=== PATIENT | male | born 1960 | race Caucasian/White ===

== ENCOUNTER 2022-09-10 12:12 | Outpatient (REF) | payer MEDICAID, SELFPAY ==
[2022-09-10 12:56] LABS: MANUAL DIFF FLAG NO
[2022-09-10 13:10] LABS: Basophils Percent Auto 0.3 % (0-2); Eosinophils Absolute Auto 0.1 X10*3/uL (0.0-0.4); Eosinophils Percent Auto 1.3 % (0-4); Hematocrit 42.5 % (42.0-52.0); Hemoglobin 14.5 g/dl (14.0-18.0); Imm Gran Abs Auto 0.02 X10*3/uL (0.00-0.03); Imm Gran Pct Auto 0.2 % (0.0-0.4); Lymphocytes Absolute Auto 2.8 X10*3/uL (1.2-4.9); Lymphocytes Percent Auto 31.3 % (20-40); Mean Corpuscular HGB Conc 34.1 g/dl (31.0-36.0); Mean Corpuscular Hemoglobin 29.7 pg (27.0-33.0); Mean Corpuscular Volume 86.9 fL (80.0-98.0); Monocytes Absolute Auto 0.9 X10*3/uL (0.1-1.2); Monocytes Percent Auto 9.9 % (2-11); Neutrophils Absolute Auto 5.1 x10*3/uL (2.0-8.3); Platelet Count 252 X10*3/uL (160-400); Red Blood Count 4.89 X10*6/uL (4.60-5.80); Red Cell Distribution Width 13.2 % (11.0-16.0)
[2022-09-10 13:53] LABS: Alanine Aminotransferase 34 U/L (0-40); Albumin Level 4.4 g/dL (3.5-5.0); Alkaline Phosphatase 102 U/L (39-117); Anion Gap 10 (12-20); Aspartate Amino Transferase 22 U/L (5-37); Bilirubin Total 0.5 mg/dL (0.0-1.0); Blood Urea Nitrogen 13 mg/dL (9-16); Calcium 9.8 mg/dL (8.4-10.2); Carbon Dioxide 29 mmol/L (22-29); Chloride 103 mmol/L (96-108); Estimated Glomerular Filt Rate 57; Glucose Random 102 mg/dL (60-115); Potassium 4.4 mmol/L (3.3-5.1); Sodium 138 mmol/L (135-145); Total Protein 7.1 g/dL (6.5-8.0)
[2022-09-12 10:37] LABS: TS Negative Control Passed; TS Panel A 4; TS Panel B 12; TS Positive Control Passed; TSpotTB Positive (Negative)
== END 2022-09-10 12:13 | disposition home or self-care (01) ==
LOC: HO.LAB 12:12
PROVIDERS: PCP Hospitalist; Referring Provider Hospitalist; Visit Provider Nurse Practitioner
DX: Z01.818 Encounter for other preprocedural examination (principal); Z11.1 Encounter for screening for respiratory tuberculosis; K74.60 Unspecified cirrhosis of liver; F20.0 Paranoid schizophrenia; R76.11 Nonspecific reaction to tuberculin skin test without active tuberculosis
CPT/HCPCS: 36415; 80053; 85025; 86481; 99202

== ENCOUNTER 2023-02-13 09:59 | Day surgery (SDC) | payer MEDICAID, SELFPAY ==
--- NOTE | 2023-02-12 13:39 | PC.NURSE ---
Guardian Laurel Higginbotham reached by phone at [phone] by this RN and informed will need to have phone available tomorrow for patients telephone consent. Guardian understood instructions & agreed to give consent by phone tomorrow.
--- NOTE | 2023-02-13 11:04 | MHC.SHP ---
Pre-Procedural Eval Section A Date of Service: 02/13/23 Section B Chief Complaint: screening Relevant Family History (Specify if Yes): No Relevant Social History: None Present Medications: see Short Stay Collaborative assessment Medical History: Significant History (High cholesterol Cirrhosis Paranoid schizophrenia) History of Previous Operations: No relevant previous surgery Allergies: Allergies Allergy/AdvReac Type Severity Reaction Status Date / Time Butyrophenones Allergy Unknown Unknown Verified 09/10/22 12:20 haloperidol [From Haldol] Allergy Unknown Unknown Verified 09/10/22 12:20 Review of Systems Sugical H&P ROS: Negative: Constitution, Cardiovascular, Respiratory, Neurological, Psychiatric, Hem-Onc, Allergic/Immunologic, Gastrointestinal, Genitourinary, Musculoskeletal, Integumentary, Endocrine and Eyes/Ears/Nose/Throat Exam Surgical H&P Exam: Normal: HEENT, Normal: Heart, Normal: Lungs, Normal: Extremities, Normal: Abdomen, Normal: Skin and Normal: Neurological Plan Diagnosis/Plan: Unchanged I have reviewed the history and physical and performed a pertinent physical examination on my patient. No changes have occurred unless specified. Time Spent With Patient Time: Total time managing care of this patient today ____ minutes.
[2023-02-13 11:14] VITALS: BMI 33.8
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
--- NOTE | 2023-02-13 11:46 | W.PM.OPN ---
Operative Note Operative Note Date of Service: 02/13/23 Narrative: Operative Information Procedure Description: Colonoscopy Indication: screening Anesthesia: MAC COLONOSCOPY Instrument: Olympus variable stiffness pediatric scope 190L Colonoscopy Monitoring: Vital signs and clinical assessment, continuous EKG monitoring, Pulse oximetry, Carbon Dioxide monitoring and blood pressure monitoring were done throughout the procedure. Colon withdrawal time was 30 minutes. Procedure: The patient was placed in the left lateral decubitis position and pre-procedure medications were administered. After a digital rectal examination of the ano-rectum, the video colonoscope was inserted into the rectum and advanced through the colon to the cecum/TI. The colonoscope was slowly withdrawn in a retrograde panoramic fashion and the colon mucosa was carefully examined including a retroflexed view of the rectum. Findings and interventions are described below. Procedure Difficulty: moderate, pressure applied to reach cecum Findings: Terminal Ileum-normal Cecum:normal Ascending Colon: x 3 sessile polyps 8-10 mm removed with cold snare Transverse Colon -normal Descending Colon: x 3 sessile polyps 7-9 mm removed with cold snare, x 1 sessile polyp 5-7 mm removed with cold forceps Sigmoid Colon: mild diverticulosis noted Rectum: Retroflexion with small internal hemorrhoids, grade I, at 18 cm from anal verge a 14-18 mm semi pedunculated polyp was noted. Injected with 1 cc of epinephrine then removed en bloc with hot snare with x 2 clips applied for hemostasis. Also marked with angi ink. Another sessile polyp 6-9 mm removed with cold snare Anorectum - normal Colon preparation: [place] Bowel Preparation Scale Right colon; 3 Transverse colon: 3 Left colon; 3 (0 = Unprepared colon segment with mucosa not seen due to solid stool that cannot be cleared. 1 = Portion of mucosa of the colon segment seen, but other areas of the colon segment not well seen due to staining, residual stool and/or opaque liquid. 2 = Minor amount of residual staining, small fragments of stool and/or opaque liquid, but mucosa of colon segment seen well. 3 = Entire mucosa of colon segment seen well with no residual staining, small fragments of stool or opaque liquid) Impression and Post Procedure Diagnosis: polyps internal hemorrhoids diverticular disease Plan: High fiber diet leaflet Avoid straining at stool, epsom salts and sitz bath, anusol supps or cream Repeat Colonoscopy in 1-2 years or earlier if clinically indicated Above findings were reviewed with the patient and relevant handouts were provided if indicated.
[2023-02-13 12:47] VITALS: BP 104/47; PULSE 89; RESP 16; TEMP 36.3; O2SAT 96
[2023-02-13 13:02] VITALS: BP 129/69; PULSE 74; RESP 16; TEMP 36.3; O2SAT 96
[2023-02-13 13:24] VITALS: BP 126/72; PULSE 71; RESP 16; TEMP 36.3; O2SAT 97
== END 2023-02-13 13:28 | disposition home or self-care (01) ==
PROVIDERS: PCP Hospitalist; Visit Provider Internal Medicine Gastroenterology
PROC: 0DJD8ZZ Inspection of Lower Intestinal Tract, Via Natural or Artificial Opening Endoscopic (ICD-10-PCS; CPT 45378; principal; 2023-02-13 11:50)
DX: Z12.11 Encounter for screening for malignant neoplasm of colon (principal); D12.0 Benign neoplasm of cecum; D12.2 Benign neoplasm of ascending colon; D12.8 Benign neoplasm of rectum; K63.5 Polyp of colon; K62.1 Rectal polyp; K57.30 Diverticulosis of large intestine without perforation or abscess without bleeding; K64.0 First degree hemorrhoids
CPT/HCPCS: 45385; 45380; 45381; 88305

== ENCOUNTER 2023-03-14 08:46 | Outpatient (AMB) | payer MEDICAID, SELFPAY ==
[2023-03-14 08:51] VITALS: BP 161/86; PULSE 93; BMI 34.8
--- NOTE | 2023-03-14 08:51 | A.OFFVIS_ITS ---
Intake Vital Signs 03/14/23 08:51 Height 5 ft 9 in Weight 235 lb 14.314 oz BMI 34.8 BP 161/86 H Blood Pressure Location Lt brachial Position Sitting Pulse 93 Intake Visit Reasons: s/p colonoscopy Intake Note: Keith presents to in office visit today in colonoscopy follow up. CC: Pt denies other GI symptoms Strip Winder Required: No Accompanied by: [facility] [employer] ENGINE[employer] Allergies Butyrophenones Allergy (Unknown, Verified 09/10/22 12:20) Unknown haloperidol [From Haldol] Allergy (Unknown, Verified 09/10/22 12:20) Unknown HPI s/p colonoscopy HPI Details 6Assessment & Plan (1) Pre-op examination: ?Code(s): Z01.818 - Encounter for other preprocedural examination ?Plan: This will be his first colonoscopy. He has intermittent constipation, no other GI problems. He is naive to anesthesia and sedation. He is a smoker, but he denies any asthma a cardiac problems. He has vitale hx of + TB skin test, will add a T spot. There is no know FHX of CRC or polyps. His father had PUD. (2) Cirrhosis: ?Code(s): K74.60 - Unspecified cirrhosis of liver (3) Paranoid schizophrenia: ?Code(s): F20.0 - Paranoid schizophrenia (4) Positive TB test: ?Code(s): R76.11 - Nonspecific reaction to tuberculin skin test without active tuberculosis ? ? ? Orders: Orders Comprehensive Met. Panel Today F20.0 - Paranoid s chizophrenia, K74. 60 - Unspecified c irrhosis of liver, Z01.818 - Encount er for other prepr ocedural examinati on ? Complete Blood Cou nt Auto Diff Today F20.0 - Paranoid s chizophrenia, K74. 60 - Unspecified c irrhosis of liver, Z01.818 - Encount er for other prepr ocedural examinati on ? T Spot TB Today F20.0 - Paranoid s chizophrenia, K74. 60 - Unspecified c irrhosis of liver, R76.11 - Nonspeci fic reaction to tu berculin skin test without active tu berculosis, Z01.81 8 - Encounter for other preprocedura l examination ? Medications: New peg 3350-electroly brooke 236-22.74-6.74 -5.86 gram (Golyt pilar) ?? until feca l effluent is yvonne r; do not exceed a total volume of 2 ,000 mL 240 mL? PO Q10M 1 day 4,000 mL 0RF Z12.11 - Encounter for screening for malignant neoplas m of colon LABS: Laboratory Tests 09/10/22 09/10/22 09/10/22 12:55 12:55 12:55 WBC 9.0 Hgb 14.5 Hct 42.5 Plt Count 252 Estimated GFR 57 Total Bilirubin 0.5 AST 22 ALT 34 Alkaline Phosphata se 102 TB Test (T-Spot) C om Positive A COLONOSCOPY 02/13/23 Findings: Terminal Ileum-normal Cecum:normal Ascending Colon: x 3 sessile polyps 8-10 mm removed with cold snare Transverse Colon -normal Descending Colon: x 3 sessile polyps 7-9 mm removed with cold snare, x 1 sessile polyp 5-7 mm removed with cold forceps Sigmoid Colon: mild diverticulosis noted Rectum: Retroflexion with small internal hemorrhoids, grade I, at 18 cm from anal verge a 14-18 mm semi pedunculated polyp was noted. Injected with 1 cc of epinephrine then removed en bloc with hot snare with x 2 clips applied for hemostasis. Also marked with angi ink. Another sessile polyp 6-9 mm removed with cold snare Anorectum - normal Impression and Post Procedure Diagnosis: polyps internal hemorrhoids diverticular disease Plan: High fiber diet leaflet Avoid straining at stool, epsom salts and sitz bath, anusol supps or cream Repeat Colonoscopy in 1-2 years or earlier if clinically indicated BIOPSY Received: 02/13/23 Diagnosis A.? Colon, ascending, polypectomies (3):? Fragments of tubular adenomata; negative for high-grade dysplasia or carcinoma. B.? Cecum, polypectomy:? Fragments of tubular adenoma; negative for high-grade dysplasia or carcinoma. C.? Colon, descending, polypectomies (4): - Fragments of tubular adenoma(ta); negative for high-grade dysplasia or carcinoma. - Hyperplastic mucosal polyp(s). D.? Rectum, polypectomy:??Tubulovillous adenoma with patchy high-grade dysplasia ; negative for submucosally invasive carcinoma. E.? Rectum, polypectomy:? Hyperplastic mucosal polyp. TODAY'S VISIT He is here today with a staff member from his nursing home who is supportive. The procedure should be repeated in 1 year r/t TVA. The procedure was well tolerated. The results were explained and the patient is agreeable to the follow-up interval as stated. The bowel pattern has returned to normal. Education was provided to tell any 1st degree relatives about their findings to be sure that they are screened by age 45. Educated that they will be put on a recall list when it is time for their repeat scope but should they move out of state or away from the hospital they will need to remember along with their primary to repeat the procedure in a timely fashion to avoid any adverse complications. [facility] Medical History Cirrhosis Concussion COVID-19 Hypercholesteremia Other specified disorders of binocular movement Paranoid schizophrenia Presbyopia Thyroid disease Surgical History (Updated 03/14/23 @ 08:58 by AGGIE Garcia) H/O colonoscopy History of dermoid cyst excision Social History Household Members Other:: lives in [facility] Are you a primary home care and home health aides teacher to a significant other at home: No Do you presently have visiting nurse or other home services: No Patient Tobacco Use Status: Current everyday Tobacco user Cigarettes Per Day: 4 Review of Systems Const Denies fatigue, Denies fever(s), Denies night sweats, Denies poor appetite and Denies weight loss ENT Reports Normal hearing present, Denies dental pain, Denies dysphagia, Denies hearing loss, Denies mouth pain, Denies odynophagia, Denies throat swelling, Denies tongue swelling and Reports other (Dentition adequate) Card Reports no additional complaints Resp Reports no additional complaints GI Denies abdominal pain, Denies melena, Denies bloating, Denies hematochezia, Denies constipation, Denies GI cramping, Denies dysphagia, Denies excessive flatus, Denies early satiety, Denies heartburn, Denies diarrhea, Denies nausea, Denies odynophagia, Denies vomiting and Denies hematemesis Skin/Breast Denies pruritus, Denies lesions, Denies rash and Denies jaundice Neuro Reports Normal hearing present and Denies Abnormal speech present Endo Denies fatigue Aller/Immun Denies throat swelling and Denies tongue swelling Physical Exam Vital Signs: Last Vital Signs Pulse 93 03/14/23 08:51 BP 161/86 H 03/14/23 08:51 BMI result Body Mass Index 34.8 Const General: cooperative, no acute distress, well developed and well groomed Nutritional Appearance: well nourished and obese Orientation/consciousness: oriented to person, oriented to place and oriented to time Limitations: No language barrier HEENT Head: Yes normocephalic and Yes atraumatic Eyes General: appearance normal, both eyes and all related structures Pupils: Equal, round and reactive pupils present Neck Neck: Yes normal visual inspection and Yes no lymphadenopathy Thyroid: Thyroid normal Resp Effort & Inspection: normal respiratory effort and able to speak in complete sentences Auscultation: clear to auscultation bilaterally Cardio Rate: regular rate Rhythm: regular rhythm Heart sounds: Normal, physiologic split S2 sound present Peripheral pulses: radial pulses present and posterior tibial pulses present GI Inspection: No distended, No Abdominal panniculus present and Yes obesity Palpation (GI): Soft to palpation, nontender, no guarding, not rigid and No hepatosplenomegaly present Percussion: Yes normal to percussion Auscultation: normal bowel sounds Rectal Exam - Male: Yes deferred Skin General skin exam: no rashes or lesions noted, turgor normal, skin not dry, no jaundice, No spider nevi and no striae Rashes: no rashes Nails: normal Neuro General: oriented to person, oriented to place and oriented to time Cranial nerves: Yes Equal, round and reactive pupils present and Yes Normal hearing present Speech: No Abnormal speech present Extrem General: Yes normal to inspection, No clubbing, No cyanosis and No edema Psych Appearance: grossly normal and well kempt Mental Status: mental status grossly normal Speech and movement: Normal speech and movement present Affect: normal affect Attitude: cooperative Thought process: Normal thought process present and not confabulating Thought content: Normal thought content present Insight: Poor insight present (Psych) Judgement: Poor judgement present (Psych) Results Reviewed Results Reviewed: Laboratory Tests 09/10/22 09/10/22 09/10/22 12:55 12:55 12:55 WBC 9.0 Hgb 14.5 Hct 42.5 Plt Count 252 Estimated GFR 57 Total Bilirubin 0.5 AST 22 ALT 34 Alkaline Phosphatase 102 TB Test (T-Spot) Com Positive A COLONOSCOPY 02/13/23 Findings: Terminal Ileum-normal Cecum:normal Ascending Colon: x 3 sessile polyps 8-10 mm removed with cold snare Transverse Colon -normal Descending Colon: x 3 sessile polyps 7-9 mm removed with cold snare, x 1 sessile polyp 5-7 mm removed with cold forceps Sigmoid Colon: mild diverticulosis noted Rectum: Retroflexion with small internal hemorrhoids, grade I, at 18 cm from anal verge a 14-18 mm semi pedunculated polyp was noted. Injected with 1 cc of epinephrine then removed en bloc with hot snare with x 2 clips applied for hemostasis. Also marked with angi ink. Another sessile polyp 6-9 mm removed with cold snare Anorectum - normal Impression and Post Procedure Diagnosis: polyps internal hemorrhoids diverticular disease Plan: High fiber diet leaflet Avoid straining at stool, epsom salts and sitz bath, anusol supps or cream Repeat Colonoscopy in 1-2 years or earlier if clinically indicated BIOPSY Received: 02/13/23 Diagnosis A.? Colon, ascending, polypectomies (3):? Fragments of tubular adenomata; negative for high-grade dysplasia or carcinoma. B.? Cecum, polypectomy:? Fragments of tubular adenoma; negative for high-grade dysplasia or carcinoma. C.? Colon, descending, polypectomies (4): - Fragments of tubular adenoma(ta); negative for high-grade dysplasia or carcinoma. - Hyperplastic mucosal polyp(s). D.? Rectum, polypectomy:??Tubulovillous adenoma with patchy high-grade dysplasia ; negative for submucosally invasive carcinoma. E.? Rectum, polypectomy:? Hyperplastic mucosal polyp. Assessment & Plan Assessment & Plan (1) Tubulovillous adenoma of colon: Comment: 2022 SCOPE REPEAT IN 6 MONTHS TO 1 YEAR Code(s): D12.6 - Benign neoplasm of colon, unspecified Plan: He is here today with a staff member from his nursing home who is supportive. The procedure should be repeated in 1 year r/t TVA. The procedure was well tolerated. The results were explained and the patient is agreeable to the follow-up interval as stated. The bowel pattern has returned to normal. Education was provided to tell any 1st degree relatives about their findings to be sure that they are screened by age 45. Educated that they will be put on a recall list when it is time for their repeat scope but should they move out of state or away from the hospital they will need to remember along with their primary to repeat the procedure in a timely fashion to avoid any adverse complications. Coding Level of Care Code Est Pt Level 4 (31594) Diagnoses Tubulovillous adenoma of colon D12.6
== END 2023-03-14 09:34 | disposition home or self-care (01) ==
PROVIDERS: PCP Hospitalist; Visit Provider Nurse Practitioner
DX: D12.6 Benign neoplasm of colon, unspecified (principal)
CPT/HCPCS: 99214

== ENCOUNTER → 2023-03-14 08:46 | Outpatient (BNVA) | payer MEDICAID, SELFPAY | PROVIDERS: PCP Hospitalist; Visit Provider Nurse Practitioner | DX: D12.6 Benign neoplasm of colon, unspecified (principal) | CPT/HCPCS: 99212 ==

== ENCOUNTER 2023-11-20 07:34 | Emergency (ER) | payer MEDICAID, SELFPAY ==
--- NOTE | ~2023-11-20 | XR_ITS ---
EXAMINATION: XR CHEST CLINICAL INFORMATION: Dyspnea COMPARISON: None available. TECHNIQUE: Frontal view of the chest was obtained. FINDINGS: No significant abnormality is noted involving the heart, lungs, mediastinum, bony thorax or soft tissues. XR/XR chest 1V IMPRESSION: Unremarkable examination.
[2023-11-20 07:43] VITALS: BP 109/78; PULSE 78; O2SAT 96
[2023-11-20 07:46] VITALS: BP 133/72; RESP 20; O2SAT 95; BMI 36.9
[2023-11-20] MEDS: Albuterol Sulfate 5 MG, Albuterol/Iprat 2.5/0.5MG 3 ML 3 ML INHALE (07:48)
[2023-11-20 07:49] VITALS: PULSE 76; RESP 24; O2SAT 94
--- NOTE | 2023-11-20 07:54 | ECG_ITS ---
Test Reason : dyspnea Blood Pressure : / mmHG Vent. Rate : 081 BPM Atrial Rate : 081 BPM P-R Int : 156 ms QRS Dur : 088 ms QT Int : 358 ms P-R-T Axes : 048 -05 016 degrees QTc Int : 415 ms Normal sinus rhythm Normal ECG No previous ECGs available Referred By: Alda Murillo Electronically Signed By:Rob Garcia
--- NOTE | 2023-11-20 07:56 | ED_ITS ---
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 He admits to smoking a lot of cigarettes. MD elicited complaint: shortness of breath Onset (ago): day(s) (just this AM) Context: smoke/fume exposure and other (woke up this AM) Timing: improved (on neb therapy) Severity: moderate Exacerbating factors: coughing Relieving factors: rest and bronchodilators Associated symptoms: cough and wheezing Treatment prior to arrival: oxygen Related Data Home Medications ?Medication ?Instructions ?Recorded ?Confirmed acetaminophen 325 mg tablet 650 mg PO Q4H PRN Fever 02/10/23 02/10/23 aluminum-mag hydroxide-simethicone 7.5 ml PO QID PRN Acid Reflux 02/10/23 02/10/23 400 mg-400 mg-40 mg/5 mL oral susp atorvastatin 40 mg tablet 40 mg PO BEDTIME 02/10/23 02/10/23 bisacodyl 10 mg rectal suppository 10 mg KS DAILY PRN Constipation 02/10/23 02/10/23 diazepam 5 mg tablet 5 mg PO BID 02/10/23 02/10/23 ibuprofen 800 mg tablet 800 mg PO Q8H PRN Pain 02/10/23 02/10/23 levothyroxine 50 mcg tablet 50 mcg PO DAILY 02/10/23 02/10/23 loratadine 10 mg capsule 10 mg PO DAILY PRN Allergy Symptoms 02/10/23 02/10/23 multivitamin 1 tab PO DAILY 02/10/23 02/10/23 olanzapine 10 mg tablet (Zyprexa) 10 mg PO BEDTIME 02/10/23 02/10/23 olanzapine 5 mg tablet (Zyprexa) 5 mg PO DAILY 02/10/23 02/10/23 perphenazine 2 mg tablet 2 mg PO BID 02/10/23 02/10/23 perphenazine 8 mg tablet 8 mg PO BID 02/10/23 02/10/23 sennosides 8.6 mg tablet (senna) 8.6 mg PO DAILY PRN Constipation 02/10/23 02/10/23 sodium phosphates 19 gram-7 118 ml KS DAILY PRN Constipation 02/10/23 02/10/23 gram/118 mL enema (Fleet Enema) Previous Rx's ?Medication ?Instructions ?Recorded bisacodyl 5 mg tablet,delayed 10 mg (2 x 5 mg) PO BEDTIME 2 days 11/11/23 release (Dulcolax (bisacodyl)) #4 tabs peg 3350-electrolytes 236 240 ml PO Q10M 1 day #4,000 mL 11/11/23 gram-22.74 gram-6.74 gram-5.86 gram solution (Golytely) albuterol sulfate 90 mcg/actuation 2 puff inhalation QID PRN 11/20/23 aerosol inhaler shortness of breath or wheezing #6.7 grams doxycycline hyclate 100 mg capsule 100 mg PO BID 7 days #14 caps 11/20/23 prednisone 20 mg tablet 40 mg (2 x 20 mg) PO DAILY 5 days 11/20/23 #10 tabs Allergies Allergy/AdvReac Type Severity Reaction Status Date / Time Butyrophenones Allergy Unknown Unknown Verified 11/20/23 07:49 haloperidol [From Haldol] Allergy Unknown Unknown Verified 11/20/23 07:49 Review of Systems 2 Review of Systems: Constitutional : No Fever, No Chills ENT/Mouth : No Hoarseness, No sore throat, No Rhinorrhea Eyes: No Redness, No Discharge, No Vision Changes Cardiovascular : No Chest Pain, positive SOB, positive Dyspnea on Exertion, No Edema Respiratory : positive Cough, No Sputum, positive Wheezing, Gastrointestinal : No Nausea, No Vomiting, No Diarrhea, No abdominal Pain Genitourinary : No Dysuria, No Hematuria Musculoskeletal : No joint pain, No Myalgias Skin : No rash Neuro : No Weakness, No Numbness, No Headache Psych : No anxiety, depression Heme/Lymph: No Bruising, No Bleeding Endocrine : No Polyuria, No Polydipsia All other systems reviewed and are negative PMFSH Past Medical History Attestation statement: The following information was validated with the patient. Source: old records reviewed Medical History Concussion Presbyopia COVID-19 Thyroid disease Other specified disorders of binocular movement Cirrhosis Hypercholesteremia Paranoid schizophrenia Surgical History H/O colonoscopy History of dermoid cyst excision Social History Social History Household Members Other:: lives in [facility] Are you a primary hospice care sales consultant to a significant other at home: No Do you presently have visiting nurse or other home services: No Alcohol intake: former Patient Tobacco Use Status: Current everyday Tobacco user Cigarettes Per Day: 4 Smoked in Last 30 Days: Yes Use of substances other than those prescribed or required for medical reasons: No Advance Directives: No Advance Directives Information Provided: No Physical Exam 2 Vital Signs: Vital Signs: Last Vital Signs Temp 97.4 F 11/20/23 08:41 Pulse 85 11/20/23 08:41 Resp 15 11/20/23 08:41 BP 143/72 H 11/20/23 08:41 Pulse Ox 94 11/20/23 08:41 O2 Del Method Room Air 11/20/23 08:41 BMI result Body Mass Index 36.9 Appearance: Alert. Oriented X3. No acute distress. Eyes: Pupils equal, round and reactive to light. ENT: Pharynx normal. Neck: Normal inspection. Neck supple. CVS: Normal heart rate and rhythm. Pulses normal. Respiratory: No respiratory distress. Breath sounds diminished with diffuse exp wheezes. Abdomen: Soft and nontender. Skin: Skin warm and dry. Normal skin color. Normal skin turgor. Extremities: No lower extremity edema. No calf ttp Neuro: Oriented X 3. No motor deficit. No sensory deficit. Medications Administered Discontinued Medications Generic Name Dose Route Start Last Admin Trade Name Freq PRN Reason Stop Dose Admin Albuterol Sulfate 5 mg/ 0 mg 11/20/23 07:42 11/20/23 07:48 Albuterol/Ipratropium 3 ml INHALE 11/20/23 07:43 1 each ONCE ONE Administration Methylprednisolone Sodium Succinate 60 mg 11/20/23 07:54 11/20/23 08:29 Methylprednisolone Sod Succ 125 Mg/2 Ml Vial IVPUSH 11/20/23 07:55 60 mg ONCE ONE Administration Medical Decision Making Medical Decision Making MDM Narrative: 63 yo male with PMH of schizophrenia, HLD, cirrhosis, hypothyroidism here with c/o not feeling well and waking up short of breath this AM with diffuse exp wheezes found to be 88% on RA. He does not normally use inhalers he admits to smoking heavily. At this time labs, CXR, viral swabs, IV steroids and neb protocols ordered. Differential Diagnosis Differential Diagnoses: The differential diagnosis associated with the presentation includes viral syndrome, reactive airways disease, bronchospasm Admission/Observation Consideration of admission/observation: Escalation of care including admission/observation considered vbg normal, no wbc count, hypoxia resolved - ambulation trial 95% VBG normal trop negative BNP negative Lab Data MDM Lab Attestation statement: I reviewed the patient's lab results. 11/20/23 08:23 11/20/23 08:23 Labs: Lab Results 11/20/23 11/20/23 11/20/23 Range/Units 08:23 08:27 08:51 WBC 8.1 (4.8-10.8) X10*3/uL RBC 5.15 (4.60-5.80) X10*6/uL Hgb 15.3 (14.0-18.0) g/dl Hct 45.4 (42.0-52.0) % MCV 88.2 (80.0-98.0) fL MCH 29.7 (27.0-33.0) pg MCHC 33.7 (31.0-36.0) g/dl RDW 13.2 (11.0-16.0) % Plt Count 183 D (160-400) X10*3/uL MPV 10.4 (9.4-12.4) fL Immature Gran % (Auto) 0.5 H (0.0-0.4) % Neut % (Auto) 51.5 (45-73) % Lymph % (Auto) 36.5 (20-40) % [place] % (Auto) 9.3 (2-11) % Eos % (Auto) 1.7 (0-4) % Baso % (Auto) 0.5 (0-2) % Lymph # (Auto) 3.0 (1.2-4.9) X10*3/uL [place] # (Auto) 0.8 (0.1-1.2) X10*3/uL Eos # (Auto) 0.1 (0.0-0.4) X10*3/uL Baso # (Auto) 0.0 (0.0-0.2) X10*3/uL Abs Immat Gran (auto) 0.04 H (0.00-0.03) X10*3/uL Absolute Neuts (auto) 4.2 (2.0-8.3) x10*3/uL Absolute Nucleated RBC 0.000 (0.0-0.012) X10*3/uL Nucleated RBC % (auto) 0.0 (0.0-0.2) /100WBC VBG pH 7.39 (7.32-7.43) VBG pCO2 47 mmHg VBG pO2 52 mmHg VBG HCO3 29 H (22-26) mmol/L VBG O2 Saturation 84.0 % VBG Base Excess 3.6 mmol/L Sodium 142 (135-145) mmol/L Potassium 3.9 (3.3-5.1) mmol/L Chloride 106 (96-108) mmol/L Carbon Dioxide 28 (22-29) mmol/L Anion Gap 12 (12-20) BUN 10 (9-16) mg/dL Creatinine 1.14 (0.5-1.4) mg/dL Estim Creat Clear Calc 83.4 Estimated GFR > 60 Random Glucose 127 H (60-115) mg/dL Lactic Acid 1.8 (0.5-2.0) mmol/L Calcium 9.6 (8.4-10.2) mg/dL Magnesium 2.2 (1.6-2.6) mg/dL Total Bilirubin 0.4 (0.0-1.0) mg/dL Direct Bilirubin 0.1 (0.0-0.5) mg/dL AST 25 (5-37) U/L ALT 36 (0-40) U/L Alkaline Phosphatase 87 (39-117) U/L Troponin I High Sens < 2.7 (<3.5-35.0) ng/L B-Natriuretic Peptide < 10 (<100) pg/mL Total Protein 7.2 (6.5-8.0) g/dL Albumin 4.3 (3.5-5.0) g/dL Lipase 24 (8-78) U/L Influenza Type A (PCR) NEGATIVE (Negative) Influenza Type B (PCR) NEGATIVE (Negative) RSV RNA Qual (PCR) NEGATIVE (Negative) SARS-CoV-2 RNA (RT-PCR) NEGATIVE (Negative) Independent Interpretation I performed an independent interpretation of an: EKG and Plain X-Ray (normal ) Interpretation: Rate: 81 Rhythm: NSR Martha: left Normal P waves. Normal LILA. Normal QRS complex. ST T wave : no BARTOLOME, inverted t wave III qTC: 415 prior studies: no acute ischemia The study has been interpreted contemporaneously by me. . Radiology Impression Discussion of test interpretation with radiology: I have reviewed the radiologist's reading. Independent Historian Clinical information obtained from an independent historian. History obtained from or confirmed by: EMS External Record Review External record reviewed: Inpatient record Prescription Management I considered prescription management with: Antibiotic and Other Discharge Plan Discharge Clinical Impression: Bilateral wheezing, Bronchitis Patient Disposition: Home, Self-Care Instructions: Acute Bronchitis (ED), Wheezing (ED) Additional Instructions: labs reassuring troponin and BNP negative chest xray normal negative for covid flu rsv needs to be on scheduled albuterol 2 puffs every 3 hours or duoneb therapy every 4 hours start on prednisone 40mg daily for 5 days as well as doxycycline Prescriptions: New doxycycline hyclate 100 mg capsule 100 mg PO BID 7 Days Qty: 14 0RF prednisone 20 mg tablet 40 mg PO DAILY 5 Days Qty: 10 0RF albuterol sulfate 90 mcg/actuation HFA aerosol inhaler 2 puff inhalation QID PRN (Reason: shortness of breath or wheezing) Qty: 6.7 0RF No Action peg 3350-electrolytes [Golytely] 236-22.74-6.74 -5.86 gram recon soln 240 ml PO Q10M 1 Days Qty: 4000 0RF Rx Instructions: until fecal effluent is clear; do not exceed a total volume of 2,000 mL bisacodyl [Dulcolax (bisacodyl)] 5 mg tablet,delayed release (DR/EC) 10 mg PO BEDTIME 2 Days Qty: 4 0RF acetaminophen 325 mg Tablet 650 mg PO Q4H PRN (Reason: Fever) ibuprofen 800 mg Tablet 800 mg PO Q8H PRN (Reason: Pain) bisacodyl 10 mg Suppository 10 mg KS DAILY PRN (Reason: Constipation) Fleet Enema 19-7 gram/118 mL Enema 118 ml KS DAILY PRN (Reason: Constipation) diazepam 5 mg Tablet 5 mg PO BID multivitamin [TAB A TONE] Tablet 1 tab PO DAILY atorvastatin 40 mg Tablet 40 mg PO BEDTIME sennosides [senna] 8.6 mg Tablet 8.6 mg PO DAILY PRN (Reason: Constipation) perphenazine 2 mg Tablet 2 mg PO BID Rx Instructions: part of the 10 mg dose daily olanzapine [Zyprexa] 10 mg Tablet 10 mg PO BEDTIME levothyroxine 50 mcg Tablet 50 mcg PO DAILY perphenazine 8 mg Tablet 8 mg PO BID Rx Instructions: part of the 10 mg dose daily alum-mag hydroxide-simeth [Mi-Acid] 400-400-40 mg/5 mL Suspension 7.5 ml PO QID PRN (Reason: Acid Reflux) loratadine 10 mg Capsule 10 mg PO DAILY PRN (Reason: Allergy Symptoms) olanzapine [Zyprexa] 5 mg Tablet 5 mg PO DAILY Print Language: Vincentian
[2023-11-20 08:29] LABS: MANUAL DIFF FLAG NO
[2023-11-20] MEDS: methylPREDNISolone Sod Succ 125 MG/2 ML VIAL 60 MG IVPUSH (08:29)
[2023-11-20 08:33] LABS: Basophils Percent Auto 0.5 % (0-2); Eosinophils Absolute Auto 0.1 X10*3/uL (0.0-0.4); Eosinophils Percent Auto 1.7 % (0-4); Hematocrit 45.4 % (42.0-52.0); Hemoglobin 15.3 g/dl (14.0-18.0); Imm Gran Abs Auto 0.04 X10*3/uL (0.00-0.03); Imm Gran Pct Auto 0.5 % (0.0-0.4); Lymphocytes Percent Auto 36.5 % (20-40); Mean Corpuscular HGB Conc 33.7 g/dl (31.0-36.0); Mean Corpuscular Hemoglobin 29.7 pg (27.0-33.0); Mean Corpuscular Volume 88.2 fL (80.0-98.0); Mean Platelet Volume 10.4 fL (9.4-12.4); Monocytes Absolute Auto 0.8 X10*3/uL (0.1-1.2); Monocytes Percent Auto 9.3 % (2-11); Neutrophils Absolute Auto 4.2 x10*3/uL (2.0-8.3); Neutrophils Percent Auto 51.5 % (45-73); Platelet Count 183 X10*3/uL (160-400); Red Blood Count 5.15 X10*6/uL (4.60-5.80); Red Cell Distribution Width 13.2 % (11.0-16.0); White Blood Count 8.1 X10*3/uL (4.8-10.8)
[2023-11-20 08:33] LABS: VBG Base Excess 3.6 mmol/L; VBG HCO3 29 mmol/L (22-26); VBG pCO2 47 mmHg; VBG pH 7.39 (7.32-7.43); VBG pO2 52 mmHg
[2023-11-20 08:34] LABS: Venous Blood Gas Refer to POC result
[2023-11-20 08:41] VITALS: BP 143/72; PULSE 85; RESP 15; TEMP 36.3; O2SAT 94
[2023-11-20 08:47] LABS: Lactic Acid 1.8 mmol/L (0.5-2.0)
[2023-11-20 08:51] LABS: Alanine Aminotransferase 36 U/L (0-40); Albumin Level 4.3 g/dL (3.5-5.0); Alkaline Phosphatase 87 U/L (39-117); Anion Gap 12 (12-20); Aspartate Amino Transferase 25 U/L (5-37); B Type Natriuretic Peptide < 10 pg/mL (<100); Bilirubin Direct 0.1 mg/dL (0.0-0.5); Bilirubin Total 0.4 mg/dL (0.0-1.0); Blood Urea Nitrogen 10 mg/dL (9-16); Calcium 9.6 mg/dL (8.4-10.2); Carbon Dioxide 28 mmol/L (22-29); Chloride 106 mmol/L (96-108); Creatinine Clr Calc Pharmacy 83.4; Estimated Glomerular Filt Rate > 60; Glucose Random 127 mg/dL (60-115); Lipase 24 U/L (8-78); Magnesium 2.2 mg/dL (1.6-2.6); Potassium 3.9 mmol/L (3.3-5.1); Sodium 142 mmol/L (135-145); Total Protein 7.2 g/dL (6.5-8.0)
[2023-11-20 08:53] LABS: Troponin-I High Sensitivity < 2.7 ng/L (<3.5-35.0)
[2023-11-20 09:44] LABS: Influenza A PCR NEGATIVE (Negative); Influenza B PCR NEGATIVE (Negative); Resp Syncy Virus RNA Qual PCR NEGATIVE (Negative); SARS COV2 PCR INHOUSE NEGATIVE (Negative)
--- NOTE | 2023-11-20 10:23 | MHC.EDTECH ---
this pct ambulates patient with pulse ox per ed provider verbal order. patient walked with steady even gait down and back one side of main ED, o2 saturation 95-96% room air. provider notified.
[2023-11-20] MEDS: Doxycycline Monohydrate 100 MG CAPSULE PO (10:52)
[2023-11-20 10:59] VITALS: BP 143/72; PULSE 85; RESP 18; TEMP 36.3; O2SAT 96
--- NOTE | 2023-11-20 11:02 | PC.NURSE ---
Report given to Jody on [place] unit at [facility] aware of patients return
--- NOTE | 2023-11-20 11:36 | PC.NURSE ---
patient seated in romulo chair in 18H, transport to bring patient back to [facility] around 2pm via ems
--- NOTE | 2023-11-20 13:13 | PC.NURSE ---
Ate well for lunch, declines vitals stating he is fine and doesnt need them
== END 2023-11-20 13:59 ==
PROVIDERS: Emergency Provider Emergency Medicine; PCP Hospitalist
DX: J40 Bronchitis, not specified as acute or chronic (principal); R06.02 Shortness of breath; R05.9 Cough, unspecified; F17.210 Nicotine dependence, cigarettes, uncomplicated; Z11.52 Encounter for screening for COVID-19; Z20.822 Contact with and (suspected) exposure to COVID-19; Z79.899 Other long term (current) drug therapy
CPT/HCPCS: 0241U; 36415; 71045; 80048; 80076; 82803; 83605; 83690; 83735; 83880; 84484; 85025; 87040; 93005; 94640; 99284; 99285; J2919; J2930

== ENCOUNTER → 2023-11-20 07:54 | Outpatient (BNV) | payer MEDICAID, SELFPAY | PROVIDERS: Emergency Provider Emergency Medicine; PCP Hospitalist; Visit Provider Internal Medicine Cardiovascular Disease | DX: R06.00 Dyspnea, unspecified (principal) | CPT/HCPCS: 93010 ==

== ENCOUNTER 2024-03-04 07:15 | Day surgery (SDC) | payer MEDICAID, SELFPAY ==
--- NOTE | 2024-03-03 10:34 | P.CONAN_ITS ---
Documented by User: Urvashi Dai NP 03/03/24 10:36 HPI - Anesthesia Eval Consult details Narrative: 64yo M for Colonoscopy Cirrhosis: No paracentesis on record PMFSH Active Problems Active Problems: All Active Problems Tubulovillous adenoma of colon (Acute) High cholesterol (Acute) Cirrhosis (Acute) Paranoid schizophrenia (Acute) Pre-op examination (Acute) Positive TB test (Acute) Past Medical History Medical History Concussion Presbyopia COVID-19 Thyroid disease Other specified disorders of binocular movement Cirrhosis Hypercholesteremia Paranoid schizophrenia Family History Family history of problems with anesthesia: No Surgical History Surgical History H/O colonoscopy History of dermoid cyst excision History of Problems with Anesthesia: No Social History Social History Household Members Other:: lives in [facility] Are you a primary acute care clinical nurse specialist to a significant other at home: No Do you presently have visiting nurse or other home services: No Alcohol intake: former Patient Tobacco Use Status: Current everyday Tobacco user Cigarettes Per Day: 4 Advance Directives: No Advance Directives Information Provided: Yes Meds Allergies Allergy/AdvReac Type Severity Reaction Status Date / Time Butyrophenones Allergy Unknown Unknown Verified 11/20/23 07:49 haloperidol [From Haldol] Allergy Unknown Unknown Verified 11/20/23 07:49 Home Medications ?Medication ?Instructions ?Recorded ?Confirmed ?Last Taken ?Type acetaminophen 325 mg tablet 650 mg PO Q4H PRN Fever 02/10/23 02/10/23 Unknown History aluminum-mag hydroxide-simethicone 7.5 ml PO QID PRN Acid Reflux 02/10/23 02/10/23 Unknown History 400 mg-400 mg-40 mg/5 mL oral susp atorvastatin 40 mg tablet 40 mg PO BEDTIME 02/10/23 02/10/23 Unknown History bisacodyl 10 mg rectal suppository 10 mg MN DAILY PRN Constipation 02/10/23 02/10/23 Unknown History diazepam 5 mg tablet 5 mg PO BID 02/10/23 02/10/23 Unknown History ibuprofen 800 mg tablet 800 mg PO Q8H PRN Pain 02/10/23 02/10/23 Unknown History levothyroxine 50 mcg tablet 50 mcg PO DAILY 02/10/23 02/10/23 Unknown History loratadine 10 mg capsule 10 mg PO DAILY PRN Allergy Symptoms 02/10/23 02/10/23 Unknown History multivitamin 1 tab PO DAILY 02/10/23 02/10/23 Unknown History olanzapine 10 mg tablet (Zyprexa) 10 mg PO BEDTIME 02/10/23 02/10/23 Unknown History olanzapine 5 mg tablet (Zyprexa) 5 mg PO DAILY 02/10/23 02/10/23 Unknown History perphenazine 2 mg tablet 2 mg PO BID 02/10/23 02/10/23 Unknown History perphenazine 8 mg tablet 8 mg PO BID 02/10/23 02/10/23 Unknown History sennosides 8.6 mg tablet (senna) 8.6 mg PO DAILY PRN Constipation 02/10/23 02/10/23 Unknown History sodium phosphates 19 gram-7 118 ml MN DAILY PRN Constipation 02/10/23 02/10/23 Unknown History gram/118 mL enema (Fleet Enema) Exam Pertinent Lab Results Pertinent Lab Results: Laboratory Tests 11/20/23 08:23 WBC 8.1 Hgb 15.3 Hct 45.4 Plt Count 183 D Sodium 142 Potassium 3.9 Chloride 106 Carbon Dioxide 28 BUN 10 Creatinine 1.14 Narrative Narrative: EKG 11/2023 Vent. Rate : 081 BPM Atrial Rate : 081 BPM P-R Int : 156 ms QRS Dur : 088 ms QT Int : 358 ms P-R-T Axes : 048 -05 016 degrees QTc Int : 415 ms Normal sinus rhythm Normal ECG No previous ECGs availabl Assessment and Plan Assessment Anesthesia Assessment: Chart Reviewed Final Anesthetic Review Family History of Problems with Anesthesia: No History of Problems with Anesthesia: No Documented by User: Nadja Prater MD 03/04/24 07:39 PMFSH Past Medical History Medical History Concussion Presbyopia COVID-19 Thyroid disease Other specified disorders of binocular movement Cirrhosis Hypercholesteremia Paranoid schizophrenia Surgical History Surgical History H/O colonoscopy History of dermoid cyst excision Social History Social History Household Members Other:: lives in [facility] Are you a primary acute care clinical nurse specialist to a significant other at home: No Do you presently have visiting nurse or other home services: No Alcohol intake: former Patient Tobacco Use Status: Current everyday Tobacco user Cigarettes Per Day: 4 Advance Directives: No Advance Directives Information Provided: Yes Meds Allergies Allergy/AdvReac Type Severity Reaction Status Date / Time Butyrophenones Allergy Unknown Unknown Verified 11/20/23 07:49 haloperidol [From Haldol] Allergy Unknown Unknown Verified 11/20/23 07:49 Home Medications ?Medication ?Instructions ?Recorded ?Confirmed ?Last Taken ?Type acetaminophen 325 mg tablet 650 mg PO Q4H PRN Fever 02/10/23 02/10/23 Unknown History aluminum-mag hydroxide-simethicone 7.5 ml PO QID PRN Acid Reflux 02/10/23 02/10/23 Unknown History 400 mg-400 mg-40 mg/5 mL oral susp atorvastatin 40 mg tablet 40 mg PO BEDTIME 02/10/23 02/10/23 Unknown History bisacodyl 10 mg rectal suppository 10 mg MN DAILY PRN Constipation 02/10/23 02/10/23 Unknown History diazepam 5 mg tablet 5 mg PO BID 02/10/23 02/10/23 Unknown History ibuprofen 800 mg tablet 800 mg PO Q8H PRN Pain 02/10/23 02/10/23 Unknown History levothyroxine 50 mcg tablet 50 mcg PO DAILY 02/10/23 02/10/23 Unknown History loratadine 10 mg capsule 10 mg PO DAILY PRN Allergy Symptoms 02/10/23 02/10/23 Unknown History multivitamin 1 tab PO DAILY 02/10/23 02/10/23 Unknown History olanzapine 10 mg tablet (Zyprexa) 10 mg PO BEDTIME 02/10/23 02/10/23 Unknown History olanzapine 5 mg tablet (Zyprexa) 5 mg PO DAILY 02/10/23 02/10/23 Unknown History perphenazine 2 mg tablet 2 mg PO BID 02/10/23 02/10/23 Unknown History perphenazine 8 mg tablet 8 mg PO BID 02/10/23 02/10/23 Unknown History sennosides 8.6 mg tablet (senna) 8.6 mg PO DAILY PRN Constipation 02/10/23 02/10/23 Unknown History sodium phosphates 19 gram-7 118 ml MN DAILY PRN Constipation 02/10/23 02/10/23 Unknown History gram/118 mL enema (Fleet Enema) Exam Airway Mallampati Class: II TM Dist: >3cm Neck ROM: Full Heart: rrr Lungs: cta Assessment and Plan Final Anesthetic Review NPO: Yes ASA Class: III Final Preanesthetic Review: No Changes in Pt Med Stat, Meds/Allgs Chart Reviewed, Consent Obtained/Reviewed and Anes Risks/Benef Reviewed Patient Risk: Intermediate Procedure Risk: Low Anesthetic Plan Anesthetic Plan: MAC: Disposition: Standard PACU
[2024-03-04 07:52] VITALS: BMI 37.1
[2024-03-04 07:54] VITALS: BP 150/100; PULSE 85; RESP 18; TEMP 36.6; O2SAT 96
[2024-03-04] MEDS: Lactated Ringers 1,000 ML 100 ML IVCONT (09:13)
--- NOTE | 2024-03-04 09:36 | MHC.SHP ---
Pre-Procedural Eval Section A - 24 Hr Update-Section A only Date of Service: 03/04/24 Section B - Complete if H&P > 30 days Chief Complaint: Benign neoplasm of colon, unspecified Relevant Family History (Specify if Yes): No Relevant Social History: Tobacco Use Present Medications: see Short Stay Collaborative assessment Medical History: Significant History (Concussion Presbyopia COVID-19 Thyroid disease Other specified disorders of binocular movement Cirrhosis Hypercholesteremia Paranoid schizophrenia) History of Previous Operations: Relevant previous surgery/procedure and date(s) (H/O colonoscopy History of dermoid cyst excision) Allergies: Allergies Allergy/AdvReac Type Severity Reaction Status Date / Time Butyrophenones Allergy Unknown Unknown Verified 03/04/24 07:54 haloperidol [From Haldol] Allergy Unknown Unknown Verified 03/04/24 07:54 Review of Systems Sugical H&P ROS: Negative: Constitution, Cardiovascular, Respiratory, Neurological, Psychiatric, Hem-Onc, Allergic/Immunologic, Gastrointestinal, Genitourinary, Musculoskeletal, Integumentary, Endocrine and Eyes/Ears/Nose/Throat Exam Surgical H&P Exam: Normal: HEENT, Normal: Heart, Normal: Lungs, Normal: Extremities, Normal: Abdomen, Normal: Skin and Normal: Neurological Plan Diagnosis/Plan: Unchanged I have reviewed the history and physical and performed a pertinent physical examination on my patient. No changes have occurred unless specified. Time Spent With Patient Time: Total time managing care of this patient today ____ minutes.
--- NOTE | 2024-03-04 09:37 | P.OPN-COLO_ITS ---
Colonoscopy Operative Note Operative Note Date of Service: 03/04/24 Narrative: Operative Information Procedure Description: Colonoscopy Indication: hx of colon polyps Anesthesia: MAC COLONOSCOPY Instrument: Olympus variable stiffness adult scope 190L Colonoscopy Monitoring: Vital signs and clinical assessment, continuous EKG monitoring, Pulse oximetry, Carbon Dioxide monitoring and blood pressure monitoring were done throughout the procedure. Colon withdrawal time was 7 minutes. Procedure: The patient was placed in the left lateral decubitis position and pre-procedure medications were administered. After a digital rectal examination of the ano-rectum, the video colonoscope was inserted into the rectum and advanced through the colon to the cecum/TI. The colonoscope was slowly withdrawn in a retrograde panoramic fashion and the colon mucosa was carefully examined including a retroflexed view of the rectum. Findings and interventions are described below. Procedure Difficulty: moderate, pressure applied over cecum Findings: Terminal Ileum-normal Cecum:normal Ascending Colon: normal Transverse Colon - 6-8 mm sessile polyp removed with cold snare Descending Colon:normal Sigmoid Colon: 10 mm sessile polyp removed with cold snare, scattered diverticul a seen Rectum: Retroflexion with small internal hemorrhoids seen, grade I, prior polypectomy site scar noted with some granulomatous area noted, cold forceps bx taken Anorectum - normal Intervention: cold snare, cold forceps Colon preparation: Axson Bowel Preparation Scale Right colon; 2 Transverse colon: 2 Left colon; 2 (0 = Unprepared colon segment with mucosa not seen due to solid stool that cannot be cleared. 1 = Portion of mucosa of the colon segment seen, but other areas of the colon segment not well seen due to staining, residual stool and/or opaque liquid. 2 = Minor amount of residual staining, small fragments of stool and/or opaque liquid, but mucosa of colon segment seen well. 3 = Entire mucosa of colon segment seen well with no residual staining, small fragments of stool or opaque liquid) Impression and Post Procedure Diagnosis: diverticulosis colon polyps internal hemorrhoids Plan: High fiber diet leaflet Avoid straining at stool, epsom salts and sitz bath, anusol supps or cream Repeat Colonoscopy in 3-5 years deu to polyps today and prior hx of polyp with HGD or earlier if clinically indicated Above findings were reviewed with the patient and relevant handouts were provided if indicated.
[2024-03-04 10:26] VITALS: BP 117/62; PULSE 82; RESP 16; TEMP 36.1; O2SAT 97
[2024-03-04 10:41] VITALS: BP 142/88; PULSE 83; RESP 18; TEMP 36.8; O2SAT 96
== END 2024-03-04 10:56 | disposition home or self-care (01) ==
PROVIDERS: PCP Hospitalist; Visit Provider Internal Medicine Gastroenterology
PROC: 0DJD8ZZ Inspection of Lower Intestinal Tract, Via Natural or Artificial Opening Endoscopic (ICD-10-PCS; CPT 45378; principal; 2024-03-04 09:10)
DX: Z12.11 Encounter for screening for malignant neoplasm of colon (principal); Z86.010 Personal history of colon polyps; K63.5 Polyp of colon; K62.1 Rectal polyp; K57.30 Diverticulosis of large intestine without perforation or abscess without bleeding; K64.0 First degree hemorrhoids; K74.60 Unspecified cirrhosis of liver; E78.00 Pure hypercholesterolemia, unspecified; E07.9 Disorder of thyroid, unspecified; H52.4 Presbyopia; H51.8 Other specified disorders of binocular movement; F20.0 Paranoid schizophrenia; Z88.8 Allergy status to other drugs, medicaments and biological substances; Z87.820 Personal history of traumatic brain injury; Z79.1 Long term (current) use of non-steroidal anti-inflammatories (NSAID); Z79.899 Other long term (current) drug therapy; F17.210 Nicotine dependence, cigarettes, uncomplicated
CPT/HCPCS: 45385; 45380; 88305; J2704

== ENCOUNTER → 2024-03-04 07:15 | Outpatient (BNV) | payer MEDICAID, SELFPAY | PROVIDERS: PCP Hospitalist; Visit Provider Internal Medicine Gastroenterology | DX: Z12.11 Encounter for screening for malignant neoplasm of colon (principal); Z86.010 Personal history of colon polyps; K63.5 Polyp of colon; K62.1 Rectal polyp; K57.30 Diverticulosis of large intestine without perforation or abscess without bleeding; K64.0 First degree hemorrhoids | CPT/HCPCS: 45380; 45385 ==